=== PATIENT | female | born 1950 | race Caucasian/White ===

== ENCOUNTER 2016-10-04 12:03 | Emergency (ER) | payer OTHER ==
--- NOTE | ~2016-10-04 | ER ---
PATIENT'S NAME: JOSE WARD [facility] AGE: 66 Y [address] ROOM: [place] [address] LOCATION: [facility] ADMIT DATE: 10/04/2016 ER/Outpatient Report DISCHARGE DATE: 10/04/2016 FAMILY PHYSICIAN: Physician, Unknown ATTENDING PHYSICIAN: Leia Avila REVIEW OF SYSTEMS: The patient is unable to give me a review of systems since she is unresponsive and code blue. PHYSICAL EXAMINATION: HEENT: Pupils were fixed, dilated, nonreactive. LUNGS: Good air flow with Ambu bag by ET tube. HEART: No activity. No pulses. ABDOMEN: Negative. EXTREMITIES: No peripheral edema or cyanosis. NEURO: The patient is unresponsive. CPR is in progress. LEIA AVILA MD SDS/modl /[id number] d: 10/16/16 2314 t: 10/17/16 1821, OUTPATIENT REPORT
--- NOTE | ~2016-10-04 | ER ---
PATIENT'S NAME: JOSE WARD [facility] AGE: 66 Y [address] ROOM: [place] [address] LOCATION: [facility] ADMIT DATE: 10/04/2016 ER/Outpatient Report DISCHARGE DATE: FAMILY PHYSICIAN: Physician, Unknown ATTENDING PHYSICIAN: Miah Martinez SUBJECTIVE: This patient was a 66-year-old female, who was brought to the emergency room by paramedics via ambulance. The patient was code blue in the field. By history, her son was called to her residence. She was having shortness of breath. She collapsed. Her son witnessed her collapse, did call 911, started CPR. Our paramedics crew arrived at [place] and did take over resuscitation efforts on this patient. They did get an interosseous IV site of left lower leg. Intubated the patient. I did close chest compressions. They did give a total of 5 amps of epinephrine. She did go into VFib for brief time and they did defibrillate once. After that the patient remained in PEA. The patient was in PEA an on arrival here to the emergency department. No pulses were palpable. We did continue closed chest compressions and respiratory efforts, Ambu bag, intubate per ET tube. We did give two rounds of epinephrine and did give 1 amp of bicarb. The patient had fixed dilated pupils. She had no response to epinephrine or bicarb. CPR was stopped. The patient pronounced at 1211 hours on 10/04/2016. FINAL IMPRESSION: Sudden cardiac event with no response to resuscitation. Secondary medical problems include [id number] diabetes type 2, dyslipidemia, essential hypertension, morbid obesity, hypothyroidism, obstructive sleep apnea. Arrangements were made for home. assistant district attorney was notified. [facility] was notified. MD OVIDIO KEENE/angell /[id number] d: 10/04/162 t: 10/16/161814, OUTPATIENT REPORT
[~2016-10-04 12:03] MED LIST: ADVIL200 MG PO; GLUCOPHAGE500 MG PO; HYDROCODON-ACE1 EAC4 PO; LANTUS (IN100 UNIT/M SUB-Q; LEVOTHYROXINE175 MCG PO; LISINOPRIL-HCT1 EAC1 PO; LOPRESSOR100 MG PO; MIRAPEX1.5 MG PO; NASACORT16.9 ML NOSE; NOVOLOG100 UNIT/M PO; PROVENTIL OR V6.7 GM INH; PROZAC40 MG PO; ZADITOR 0.025% O5 ML OPHTH; ZOCOR40 MG PO
== END 2016-10-04 12:11 | disposition expired ==
LOC: GMED 12:03
DX: I46.9 Cardiac arrest, cause unspecified (principal); I10 Essential (primary) hypertension; E11.9 Type 2 diabetes mellitus without complications; E78.5 Hyperlipidemia, unspecified; E66.01 Morbid (severe) obesity due to excess calories; E03.9 Hypothyroidism, unspecified; G47.33 Obstructive sleep apnea (adult) (pediatric)
CPT/HCPCS: J0171